=== PATIENT | male | born 1995 | race Two or more races ===

== ENCOUNTER 2017-12-23 10:56 | Emergency (ER) | payer SELFPAY ==
[~2017-12-23] VITALS: Ht 180.3 cm; Wt 127.0 kg
[2017-12-23 13:14] VITALS: BP 151/91
[2017-12-23] MEDS ORDERED: HYDROcodone-ACET 10/325MG TAB PO ONE (13:15)
== END 2017-12-23 13:48 | disposition home or self-care (01) ==
LOC: ER 10:56
DX: S62.664A Nondisplaced fracture of distal phalanx of right ring finger, initial encounter for closed fracture (principal); F12.10 Cannabis abuse, uncomplicated; W22.8XXA Striking against or struck by other objects, initial encounter; Y93.89 Activity, other specified; Y99.8 Other external cause status; Y92.89 Other specified places as the place of occurrence of the external cause
CPT/HCPCS: 29130; 73130

== ENCOUNTER 2018-08-30 11:28 | Emergency (ER) | payer SELFPAY ==
[~2018-08-30] VITALS: Ht 180.3 cm; Wt 127.0 kg
[2018-08-30 11:53] VITALS: BP 150/89
[2018-08-30] MEDS ORDERED: cefTRIAXone SOD 1,000 MG VL IM ONE (12:30)
[2018-08-30] MEDS ORDERED: methylPREDNISolone SOD SUCC 125 MG/2 ML VL IM ONE (12:30)
== END 2018-08-30 12:41 | disposition home or self-care (01) ==
LOC: ER 11:28
DX: J03.90 Acute tonsillitis, unspecified (principal); F12.10 Cannabis abuse, uncomplicated
CPT/HCPCS: 99283; J0696; J2930

== ENCOUNTER 2018-09-03 10:15 | Emergency (ER) | payer SELFPAY ==
[~2018-09-03] VITALS: Ht 180.3 cm; Wt 127.0 kg
[2018-09-03] MEDS ORDERED: cefTRIAXone SOD 1,000 MG VL IM ONE (10:45)
[2018-09-03 11:15] VITALS: BP 133/95
== END 2018-09-03 11:29 | disposition home or self-care (01) ==
LOC: ER 10:15
DX: H66.92 Otitis media, unspecified, left ear (principal); J03.90 Acute tonsillitis, unspecified; H10.33 Unspecified acute conjunctivitis, bilateral; F12.10 Cannabis abuse, uncomplicated
CPT/HCPCS: 96372; 99283; J0696

== ENCOUNTER 2019-12-26 17:11 | Emergency (ER) | payer SELFPAY ==
[~2019-12-26] VITALS: Ht 180.3 cm; Wt 117.9 kg
[2019-12-26 18:30] LABS: Basophils # (auto) 0 10 ^3/uL (0-0.2); Basophils % (auto) 0.2 % (0.0-2.0); Eosinophils # (auto) 0 10 ^3/uL (0-0.8); Eosinophils % (auto) 0.3 % (0.0-7.0); Hemoglobin 15.8 g/dL (13.5-17.5); Lymphocytes # (auto) 1.3 10 ^3/uL (0.4-5.4); Lymphocytes % (auto) 10.5 % (10.0-50.0); Mean Corpuscular Hemoglobin 29.1 pg (28.0-32.0); Mean Corpuscular Hgb Conc. 32.3 g/dL (32.0-36.0); Mean Corpuscular Volume 90.3 fL (80.0-100.0); Monocytes # (auto) 0.7 10 ^3/uL (0-1.3); Monocytes % (auto) 5.5 % (0.0-12.0); Neutrophils # (auto) 10.2 10 ^3/uL (1.6-8.6); Neutrophils % (auto) 83.5 % (37.0-80.0); Platelet Count (auto) 245 10^3/uL (140-450); Red Blood Cells 5.43 10^6/uL (4.5-5.90); Red Cell Distribution Width 13.3 % (11.8-14.3); White Blood Cell 12.2 10^3/uL (4.4-10.8)
[2019-12-26 18:54] LABS: Albumin 4.2 g/dL (3.4-5.0); Calcium 9.2 mg/dL (8.5-10.1); Potassium 3.5 mmol/L (3.5-5.1)
[2019-12-26 18:56] LABS: BUN/Creatinine Ratio 11.1
[2019-12-26 18:59] LABS: Bilirubin, Total 0.6 mg/dL (0.2-1.0); Total Protein 8.1 g/dL (6.4-8.2)
[2019-12-26 20:40] LABS: Amylase 43 U/L (25-115); Lipase 91 U/L (73-393)
[2019-12-26 22:00] VITALS: BP 126/68
[2019-12-27 00:55] LABS: Urine Bacteria NONE SEEN /hpf (None Seen); Urine Blood 3+ /uL (Negative); Urine Mucus FEW (None Seen); Urine Specific Gravity 1.022 (1.001-1.035); Urine WBC 20 /hpf (0 - 3)
[2019-12-27 01:13] LABS: Alcohol, Urine < 3.0 mg/dL (0-10); Amphetamine Screen, Urine NEGATIVE (NEGATIVE); Barbiturate Scree,Urine NEGATIVE (NEGATIVE); Benzodiazephine Screen, Urine NEGATIVE (NEGATIVE); Cannabinoid Screen, Urine POSITIVE (NEGATIVE); Cocaine Screen, Urine NEGATIVE (NEGATIVE); Opiate Scree,Urine NEGATIVE (NEGATIVE); Phencyclidine Screen, Urine NEGATIVE (NEGATIVE)
== END 2019-12-27 00:21 | disposition left against medical advice (07) ==
LOC: EDUNIT# 17:11 → ER 17:11 → EDBD 17:11 → ER 12-27 00:21
DX: N13.2 Hydronephrosis with renal and ureteral calculous obstruction (principal); N23 Unspecified renal colic
CPT/HCPCS: 36415; 74176; 80053; 80307; 81001; 82150; 83690; 85025